=== PATIENT | male | born 1950 | race Caucasian/White ===

== ENCOUNTER 2020-01-04 16:26 | Emergency (ER) | payer OTHER ==
[~2020-01-04] VITALS: Ht 167.6 cm; Wt 87.1 kg
[~2020-01-04 16:26] MED LIST: GLIPIZIDE5 MG PO; OMEPRAZOLE40 M1 PO; PIOGLITAZONE45 M1 PO
[2020-01-04 16:38] VITALS: Ht 167.6 cm; Wt 87.1 kg
[2020-01-04 19:04] VITALS: BP 177/93
== END 2020-01-04 19:04 | disposition home or self-care (01) ==
LOC: ED 16:26
DX: S61.411A Laceration without foreign body of right hand, initial encounter (principal); E11.9 Type 2 diabetes mellitus without complications; W22.8XXA Striking against or struck by other objects, initial encounter; Y93.89 Activity, other specified; Y92.89 Other specified places as the place of occurrence of the external cause; Y99.8 Other external cause status
CPT/HCPCS: 90715; J2001

== ENCOUNTER 2020-01-17 07:57 | Emergency (ER) | payer OTHER ==
[~2020-01-17] VITALS: Ht 177.8 cm; Wt 86.2 kg
[2020-01-17 08:08] VITALS: Ht 177.8 cm; Wt 86.2 kg
[2020-01-17 09:11] VITALS: BP 140/75
== END 2020-01-17 09:11 | disposition home or self-care (01) ==
LOC: ED 07:57
DX: S61.411D Laceration without foreign body of right hand, subsequent encounter (principal); E11.9 Type 2 diabetes mellitus without complications; X58.XXXD Exposure to other specified factors, subsequent encounter

== ENCOUNTER 2020-09-22 22:56 | Emergency (ER) | payer OTHER ==
[~2020-09-22] VITALS: Ht 175.3 cm; Wt 85.3 kg
[2020-09-22 23:01] VITALS: Ht 175.3 cm; Wt 85.3 kg
[2020-09-23 00:48] VITALS: BP 155/85
== END 2020-09-23 00:48 | disposition home or self-care (01) ==
LOC: ED 22:56
DX: R06.6 Hiccough (principal); E11.9 Type 2 diabetes mellitus without complications
CPT/HCPCS: 82962; J3230